=== PATIENT | female | born 1945 | race Caucasian/White ===

== ENCOUNTER → 2017-09-16 10:57 | Outpatient (CLI) | payer MEDICARE, SELFPAY ==
--- NOTE | 2017-09-16 11:30 | MRI_ITS ---
STUDY: MRA OF THE HEAD WITHOUT CONTRAST REASON FOR EXAM: Female, 72 years old. Follow-up anterior communicating artery aneurysm. TECHNIQUE: 3-D mlym-hf-[id number] (TOF) imaging was performed with MIPs. The study was performed unenhanced. COMPARISON: 11/02/2011. FINDINGS: Normal bilateral petrous carotid arteries. Normal right cavernous carotid artery with a normal supraclinoid bifurcation. Normal left cavernous carotid artery with a normal supraclinoid bifurcation. Hypoplastic right A1 segment of the anterior cerebral artery. Normal left A1 segment of the anterior cerebral artery. Normal intact anterior communicating artery (ACOM). Normal bilateral A2 segments of the anterior cerebral arteries. Normal right M1 and M2 segments of the middle cerebral arteries, with a normal M1 bifurcation. Normal left M1 and M2 segments of the middle cerebral arteries, with a normal M1 bifurcation. Normal right posterior communicating artery (PCOM). Normal left posterior communicating artery (PCOM). Normal bilateral vertebral arteries. Normal basilar artery with a normal basilar bifurcation. The visualized bilateral superior cerebellar (SCA) arteries are normal. Markedly hypoplastic right P1 segment. Normal bilateral P1, P2 and visualized P3 segments of the posterior cerebral arteries. There is no demonstrated aneurysm of the [place]. There is no major vessel occlusion or hemodynamically significant stenosis. MRI/MRA Head ONLY without Contrast IMPRESSION: 1. No MRA evidence of intracranial aneurysm particularly in the anterior communicating artery. The anterior communicating artery is normal and there is a developmentally hypoplastic right A1 segment. 2. Normal MRA of the head. 3. Much better detail in today's exam when compared to 11/02/2011. Electronically Signed: Butch Hutton MD at 13:20 EDT , Service support ,
== END ==
PROVIDERS: Family Provider Family Medicine; PCP Family Medicine; Visit Provider Ophthalmology
DX: I67.1 Cerebral aneurysm, nonruptured (principal)
CPT/HCPCS: 70544

== ENCOUNTER → 2018-04-11 08:42 | Outpatient (CLI) | payer MEDICARE, SELFPAY ==
--- NOTE | 2018-04-11 08:45 | RAD_ITS ---
PROCEDURE: Fluoroscopic guided left shoulder Injection DATE: April 11, 2018. INDICATION: Female, 73 years old. Chronic left shoulder pain. PHYSICIAN: Boy Aldana M.D. MEDICATIONS: 12 mg of betamethasone and 4 cc of 1% lidocaine. 2% lidocaine administered subcutaneously for local anesthesia. ACCESS SITE: Left shoulder. NEEDLE: 22-gauge spinal needle. FLUOROSCOPY TIME (if supplied): (0:31) minutes/seconds. A single image was obtained. FINDINGS: The risks, benefits, and alternatives to the procedure were explained to the patient. The specific risks of bleeding, infection, and neurovascular injury were detailed and accepted. Witnessed informed consent was obtained. A 22-gauge spinal needle was positioned under radiographic fluoroscopic localization. Approximately 2 cc of Isovue-300 instilled for localization purposes. Medication was then injected. The patient tolerated the procedure well without any immediate complications. The patient was placed supine with head elevated and returned to the floor in stable condition. RAD/Inj/Asp Broderick Jt Should/Hip/Knee IMPRESSION: 1. Successful fluoroscopic guided left shoulder injection. Electronically Signed: Boy Aldana, at 10:00 EST , Service support ,
== END ==
PROVIDERS: Family Provider Family Medicine; PCP Family Medicine; Referring Provider Specialist; Visit Provider Specialist
DX: M19.012 Primary osteoarthritis, left shoulder (principal); G89.29 Other chronic pain
CPT/HCPCS: 20610; 77002; Q9967; J0702

== ENCOUNTER → 2020-03-11 11:12 | Outpatient (CLI) | payer MEDICARE, SELFPAY ==
--- NOTE | 2020-03-11 08:15 | BLA_PTH ---
PATIENT: JUAN HURLEY LOC: [facility] U#:[id number] AGE/SX: 79/F ROOM: RE03/11/[address]: Dr. Cliff Jose MD : 1945 BED: DIS: SPEC #: [id number] RECD: 03/11/20 10:59 STATUS: CINDY KATHLEEN #: [id number] BHAVNA: 03/11/20 08:[address]: Cliff Jose DEPT: SURGICAL PATHOLOGY RECD BY: Marcia Kumar ENTERED: 03/11/20 13:11 SP TYPE: BLADDER BX OTHR DR: Dr. Jorge Vargas, DO Tissues: Urinary bladder, NOS Procedures: Surgery Specimen Level IV HEADER OPERATION: Bladder biopsy PRE-OP DIAGNOSIS: Neoplasm of bladder; hematuria TISSUE SUBMITTED: Bladder biopsy MICROSCOPIC DIAGNOSIS Urinary bladder, biopsy: Superficial fragment of urothelium with mild reactive change. See comment. AM:jaxson 03/12/2020 COMMENT Clinical correlation is suggested. MICROSCOPIC DESCRIPTION Slides are reviewed. GROSS DESCRIPTION Received in fixative is one container labeled with the patient's name and designated bladder biopsy. The specimen consists of two minute fragments of erazo soft tissue each measuring 0.1 cm in greatest dimension. The specimen is totally submitted in one cassette. / SJ:jaxson 03/11/20 TC:5 CPT: 75522
== END ==
PROVIDERS: PCP Family Medicine; Referring Provider Urology; Visit Provider Urology
DX: R31.21 Asymptomatic microscopic hematuria (principal); D41.4 Neoplasm of uncertain behavior of bladder
CPT/HCPCS: 88305

== ENCOUNTER 2023-03-07 09:32 | Day surgery (SDC) | payer MEDICARE, SELFPAY ==
[2023-03-07] MEDS: Lactated Ringers 1,000 ML 15 ML IV (10:06)
[2023-03-07 10:07] VITALS: BP 160/72; PULSE 52; RESP 17; TEMP 36.2; O2SAT 100; BMI 29.9
--- NOTE | 2023-03-07 10:28 | PCM.HP.BLA ---
History and Physical Date of Admission: 03/07/23 77 F who presents to the office today for PCP OV 06.15.22 for preoperative clearance for left reverse total should arthroplasty noting history of CKD stage III, prediabetes, myasthenia gravis, hyperlipidemia, prolonger QT interval with bradycardia ? Biochemical CBC, BMP, LFT, A1c, TSH, uric acid, lipids, triglycerides without pertinent abnormality. ? Esophagram 07.08.22 narrowing of esophagus at inferior clavicles with barium table delay; small intermittent hiatal hernia; mild tertiary contractions. No GERD. *BGI established 01.27.23 following a stress test which she narrowly passed, she was given a glass of water and had an occurrence of dysphagia; PCP the ordered studies. Typically dysphagia is not an issue though requires repeated swallowing is necessary intermittently, less than daily with tougher foods. ROS Const Constitutional: No anorexia, fatigue, fever(s), weight change or sleep problems Eyes Eyes: No change in vision ENT ENT: No abnormal hearing, difficulty swallowing, mouth lesions, tongue swelling or throat swelling Resp Respiratory: No cough or shortness of breath Cardio Cardiology: No chest pain at rest, chest pain with exertion, shortness of breath or dyspnea on exertion Gastro GI: No difficulty swallowing Genitourinary-Female: No difficulty urinating or burning urination Musc Musculoskeletal: No joint pain, joint swelling, muscle weakness or decreased muscle mass Skin Skin: No hair loss in leg, yellowing of the eye, itchy eyes, rash, skin ulcer or skin swelling Neuro Neurology: No abnormal hearing, abnormal movements, confusion, unsteady gait/balance or memory loss Psych Psychiatric: No anxiety, No confusion and No memory loss Endo Endocrine: No fatigue or weight change Aller/Imm Allergy/Immunologic: No itchy eyes, throat swelling or tongue swelling Victoriano/Lymp Hematologic/Lymphatic: No easy bleeding, easy bruising or enlarged lymph nodes Exam Const General: cooperative and comfortable Nutritional Appearance: average body habitus and well nourished [facility] Head: normal to inspection Ears: hearing grossly normal bilaterally Nose: external nose normal Face and sinus: normal facial exam Mouth: oral mucosae normal Throat: posterior oropharynx normal Eyes General: appearance normal, both eyes and all related structures Neck Neck: normal visual inspection Chest Chest palpation & inspection: normal inspection of the chest and normal palpation of entire chest wall Resp Effort & Inspection: normal respiratory effort Auscultation: Bilateral: Clear to Auscultation Cardio Palpation: normal PMI Rate: regular rate Rhythm: regular rhythm GI Inspection: normal to inspection Auscultation: normal bowel sounds Percussion: normal to percussion Palpation: no hepatosplenomegaly Skin General: no rashes or lesions noted Neuro General: patient alert Extrem General: normal to inspection Psych Affect: normal affect Assessment and Plan Assessment and Plan (1) Dysphagia: Status: Chronic Qualifiers: Dysphagia type: esophageal phase Qualified Code(s): R13.19 - Other dysphagia Plan: 77-year-old with no significant past medical history not on any medicines on a daily basis was discovered to have esophageal dysphagia after undergoing a stress test. Her stress test was negative for any cardiac ischemia. She did undergo a barium swallow after her episode of esophageal dysphagia. Barium swallow was discovered to have narrowing at the level of the cricopharyngeus, increased tertiary contractions, narrowing at the lower esophageal sphincter and a hiatal hernia. She does get intermittent solid food dysphagia mostly with meats. Differential diagnosis does include peptic stricture, benign esophageal stricture, eosinophilic esophagitis, achalasia, inappropriate esophageal motility disorder, esophageal spasm. Recommendation upper endoscopy to evaluate upper GI tract. She was explained alternatives, risk, benefits include not withstanding bleeding, infection, sepsis, perforation, need for return to . She will have an ASA of 3. Orders: I have examined the patient and the H&P has been reviewed. There are no clinical changes since date of exam.
--- NOTE | 2023-03-07 11:00 | EGD_PTH ---
PATHOLOGY RESULTS PATIENT: JUAN HURLEY LOC: EN U#:[id number] AGE/SX: 77/F ROOM: RE03/07/[address]: Dr. Jacob Clark DO : 1945 BED: DIS: 03/07/2023 SPEC #: [id number] RECD: 03/07/23 12:10 STATUS: CINDY REClement #: [id number] BHAVNA: 03/07/23 11:[address]: Jacob Clark DEPT: SURGICAL PATHOLOGY RECD BY: Bita Perez ENTERED: 03/07/23 12:11 SP TYPE: EGD BIOPSY SEPIDEH DR: Dr. Israel Turner DO Tissues: Esophageal mucous membrane Procedures: Special Stain Group II Surgery Specimen Level IV Alcian Blue/PAS (control) HEADER OPERATION: EGD with dilation, biopsy PRE-OP DIAGNOSIS: Dysphagia TISSUE SUBMITTED: Distal esophagus biopsy MICROSCOPIC DIAGNOSIS Distal esophagus, biopsy: Gastroesophageal junction with chronic inflammation. Focal changes of reflux. No evidence of goblet cell metaplasia. See comment. AM:jaxson 03/08/2023 COMMENT Alcian blue/PAS stain with matched control supports the above diagnosis. MICROSCOPIC DESCRIPTION Slides are reviewed. GROSS DESCRIPTION Received in fixative is one container labeled with the patient's name and designated distal esophagus biopsy. The specimen consists of multiple irregular fragments of light erazo soft tissue that in aggregate measure 1.0 x 0.5 x 0.1 cm. The specimen is totally submitted in one cassette. / SJ:jaxson 03/07/2023 TC:3 CPT: 67549, 87914
[2023-03-07 11:10] VITALS: BP 160/72; BP 173/69; PULSE 60; RESP 16; TEMP 36.3; O2SAT 95
[2023-03-07 11:15] VITALS: BP 141/73; BP 160/72; PULSE 64; RESP 16; O2SAT 96
--- NOTE | 2023-03-07 11:16 | OP.CCLET_ITS ---
03/07/2023 Israel Turner Do Re : Upper GI endoscopy procedure for Haley Pagan Dear Yue This procedure was performed on Tuesday, March 07, 2023. My impressions and recommendations are as follows: Impressions : - Abnormal esophageal motility. - Moderate Schatzki ring. Dilated. - Z-line irregular, 39 cm from the incisors. Biopsied. - Small hiatal hernia. - Bilious gastric fluid. Fluid aspiration performed. - No gross lesions in the first portion of the duodenum. Recommendations : - Discharge patient to home. - Resume previous diet. - Continue present medications to look for extrinsic compression of the esophagus - Await pathology results. My findings are described in the full procedure note, which is enclosed. If I can be of further assistance, please feel free to contact me at . Sincerely, Jacob Clark, 03/07/2023 11:16:35 AM This report has been signed electronically.
--- NOTE | 2023-03-07 11:16 | OP.EGD_ITS ---
Patient Name: Haley Pagan Procedure Date: 03/07/2023 10:50 AM Date of : 1945 Age: 77 Procedure: Upper GI endoscopy Indications: Dysphagia Providers: Jacob Clark DO Medicines: Monitored Anesthesia Care Patient Profile: This is a 77 year old female. Refer to note in patient chart for documentation of history and physical. Patient has symptoms of dysphagia with both liquids and solids. Complications: No immediate complications. Procedure: Pre-Anesthesia Assessment: - Prior to the procedure, a History and Physical was performed, and patient medications and allergies were reviewed. The patient is competent. The risks and benefits of the procedure and the sedation options and risks were discussed with the patient. All questions were answered and informed consent was obtained. Patient identification and proposed procedure were verified by the physician in the pre-procedure area. Mental Status Examination: alert and oriented. Airway Examination: normal oropharyngeal airway and neck mobility. Respiratory Examination: clear to auscultation. CV Examination: normal. Prophylactic Antibiotics: The patient does not require prophylactic antibiotics. Prior Anticoagulants: The patient has taken no anticoagulant or antiplatelet agents. ASA Grade Assessment: II - A patient with mild systemic disease. After reviewing the risks and benefits, the patient was deemed in satisfactory condition to undergo the procedure. The anesthesia plan was to use monitored anesthesia care (MAC). Immediately prior to administration of medications, the patient was re-assessed for adequacy to receive sedatives. The heart rate, respiratory rate, oxygen saturations, blood pressure, adequacy of pulmonary ventilation, and response to care were monitored throughout the procedure. The physical status of the patient was re-assessed after the procedure. After obtaining informed consent, the endoscope was passed under direct vision. Throughout the procedure, the patient's blood pressure, pulse, and oxygen saturations were monitored continuously. The Endoscope was introduced through the mouth, and advanced to the second part of duodenum. The upper GI endoscopy was accomplished without difficulty. The patient tolerated the procedure well. Scope In: 11:00:19 AM Scope Out: 11:05:20 AM Total Procedure Duration Time 0 hours 5 minutes 1 second Findings: Abnormal motility was noted in the esophagus. The cricopharyngeus was abnormal. There is a decrease in motility of the esophageal body. The distal esophagus/lower esophageal sphincter is spastic, but gives up passage to the endoscope. Tertiary peristaltic waves are noted. A moderate Schatzki ring was found in the distal esophagus. A guidewire was placed and the scope was withdrawn. Dilation was performed with a Savary dilator with no resistance at 60 Fr. The dilation site was examined and showed moderate improvement in luminal narrowing. Estimated blood loss was minimal. The Z-line was irregular and was found 39 cm from the incisors. Biopsies were taken with a cold forceps for histology. Verification of patient identification for the specimen was done. A small hiatal hernia was present. Bilious fluid was found in the gastric body. Fluid aspiration was performed. No gross lesions were noted in the first portion of the duodenum. Impression: - Abnormal esophageal motility. - Moderate Schatzki ring. Dilated. - Z-line irregular, 39 cm from the incisors. Biopsied. - Small hiatal hernia. - Bilious gastric fluid. Fluid aspiration performed. - No gross lesions in the first portion of the duodenum. Recommendation: - Discharge patient to home. - Resume previous diet. - Continue present medications to look for extrinsic compression of the esophagus - Await pathology results. Procedure Code(s): --- Professional --- 64355, Esophagogastroduodenoscopy, flexible, transoral; with insertion of guide wire followed by passage of dilator(s) through esophagus over guide wire 18280, 59,51, Esophagogastroduodenoscopy, flexible, transoral; with biopsy, single or multiple CPT copyright 2021 [employer]. All rights reserved. The codes documented in this report are preliminary and upon water filterer helper review may be revised to meet current compliance requirements. Jacob Clark DO 03/07/2023 11:16:35 AM This report has been signed electronically. Number of Addenda: 0 Note Initiated On: 03/07/2023 10:50 AM
[2023-03-07 11:20] VITALS: BP 139/85; BP 160/72; PULSE 55; RESP 16; TEMP 36.1; O2SAT 100
[2023-03-07 11:29] VITALS: BP 160/72
== END 2023-03-07 11:46 | disposition home or self-care (01) ==
LOC: EN 09:33 → AC 10:04
PROVIDERS: PCP Student in an Organized Health Care Education/Training Program; Referring Provider Student in an Organized Health Care Education/Training Program; Visit Provider Internal Medicine Gastroenterology
PROC: 0DJ08ZZ Inspection of Upper Intestinal Tract, Via Natural or Artificial Opening Endoscopic (ICD-10-PCS; CPT 43235; principal; 2023-03-07 10:55)
DX: K22.2 Esophageal obstruction (principal); K44.9 Diaphragmatic hernia without obstruction or gangrene; E78.5 Hyperlipidemia, unspecified; Z79.899 Other long term (current) drug therapy
CPT/HCPCS: 43248; 43239; 88305; 88313; C1769; J2405

== ENCOUNTER → 2023-03-15 | Outpatient (CLI) | payer MEDICARE, SELFPAY ==
--- OUTSIDE RECORDS SUMMARY | 2023-03-15 07:41 | XMS RPT_ITS | CCD ---
Author Name Unknown Address [address] [place] [address] Organization [facility] Care Team Providers Care Supervisor Contact Lens Name Role Phone LOCO NORMAN, DR BELLAMY Primary Care Physician [phone] Narinder MICHELE, Sarita Unavailable Unavailable ROMAR DO, DR BELLAMY Primary Care Unavailable ROMAR DO, DR BELLAMY Attending Unavailable ROMAR DO, DR BELLAMY Attending Unavailable ROMAR DO, DR BELLAMY Primary Care Unavailable ROMAR DO, DR BELLAMY Attending Unavailable ROMAR DO, DR BELLAMY Primary Care Unavailable ROMAR DO, DR BELLAMY Primary Care Unavailable ESHENAUR PA-CTOBI Attending Unavailable ESHENAUR PA-C, RAY W Referring Unavailable ROMAR DO, DR BELLAMY Attending Unavailable ROMAR DO, DR BELLAMY Primary Care Unavailable ROMAR DO, DR BELLAMY Attending Unavailable ROMAR DO, DR BELLAMY Primary Care Unavailable ROMAR DO, DR BELLAMY Attending Unavailable ROMAR DO, DR BELLAMY Primary Care Unavailable ROMAR DO, DR BELLAMY Primary Care Unavailable JOSEPH PALOMINO-KEM, NILA Emery Consulting Cezar DUARTE, NILA Emery Attending Cezar HENDRICKS MD, DR MARISEL Garcia Admitting Unavailab riri HENDRICKS MD, DR MARISEL Garcia Referring Unavailab le ROMAR , DR BELLAMY Primary Care Unavailable ELADIO POON, DR MARISEL Garcia Attending Unavailab le ROMAR , DR BELLAMY Primary Care Unavailable ELADIO POON, DR MARISEL Garcia Attending Unavailab le ROMAR DO, DR BELLAMY Primary Care Unavailable ROMAR DO, DR BELLAMY Attending Unavailable ROMAR DO, DR BELLAMY Primary Care Unavailable ROMAR DO, DR BELLAMY Attending Unavailable ROMAR DO, DR BELLAMY Attending Unavailable ROMAR DO, DR BELLAMY Primary Care Unavailable Allergies Allergy Classification Reported Allergen(s) Allergy Type Date of Onset Reaction(s) Facility (10 sources) Acetaminophen / HYDROcodone; Translations: [acetaminophen-hyd rocodone] Drug Allergy Vomiting [facility] Medications Current Medications Medication Drug Class(es) Dates Sig (Normalized) Sig (Original) acetaminophen 500 mg oral tablet (1 source) Start: 07-14-2022 End: 07-28-2022 take 1 tablet by mouth once daily acetaminophen 500 mg oral tablet Dose : 1,000 mg = 2 tab(s), Oral, TID, PRN as needed for pain, not to exceed 3000 mg/day, # 100 tab(s), 0 Refill(s), 07/28/22 7:36:00 EDT, Pharmacy: [facility] #[id number], 160, cm, 07/13/22 12:23:00 EDT, Height Start Date: 07/14/22 Stop Date: 07/28/22 Status: Ordered albuterol MDI (90 mcg/inh) CFC free inhalation aerosol (8 sources) Start: 06-29-2022 End: 12-26-2022 take 2 puff(s) by inhalation every four hours as needed for wheezing albuterol MDI (90 mcg/inh) CFC free inhalation aerosol 2 puff(s), Inhalation, q4h, PRN Shortness of breath or wheezing, use with spacer chamber, # 1 EA, 5 Refill(s), Pharmacy: [facility] #[id number], 160, cm, 06/28/22 11:31:00 EDT, Height Start Date: 06/29/22 Stop Date: 12/26/22 Status: Ordered Completed/Discontinued Medications Medication Drug Class(es) Dates Sig (Normalized) Sig (Original) aspirin 81 mg delayed release oral tablet (2 sources) Platelet Aggregation Inhibitor, Nonsteroidal Anti-inflammatory Drug Start: 07-14-2022 End: 07-28-2022 take 1 tablet by mouth twice daily aspirin 81 mg oral delayed release tablet Dose : 81 mg = 1 tab(s), Oral, BID, Take 81 mg aspirin twice daily with food for 4 weeks postoperatively for DVT prophylaxis., # 28 tab(s), 0 Refill(s), Pharmacy: [facility] #[id number], 160, cm, 07/13/22 12:23:00 EDT, Height Start Date: 07/14/22 Stop Date: 07/28/22 Status: Ordered cetirizine hydrochloride 10 mg oral tablet (1 source) Histamine-1 Receptor Antagonist Start: 10-17-2019 End: 12-16-2019 cetirizine 10 mg oral tablet Dose : 10 mg = 1 tab(s), Oral, qDay, # 30 tab(s), 1 Refill(s), [id number], 160, cm, 10/17/19 13:59:00 EDT, Height, kg, 10/17/19 13:59:00 EDT, Dosing Weight Start Date: 10/17/19 Stop Date: 12/16/19 Status: Ordered triamcinolone acetonide 0.055 mg/actuat metered dose nasal spray (3 sources) Corticosteroid Start: 10-17-2019 End: 12-16-2019 take 1 dose nasal route once daily Nasacort Allergy 24HR 55 mcg/inh nasal spray Dose = 1 spray(s), Nostril, each, qDay, # 1 EA, 1 Refill(s), [id number], 160, cm, 10/17/19 13:59:00 EDT, Height, kg, 10/17/19 13:59:00 EDT, Dosing Weight Start Date: 10/17/19 Stop Date: 12/16/19 Status: Ordered Problems Problem Classification Problem Date Documented Da te Episodic/Chronic Abdominal hernia (3 sources) Hiatal hernia 07-12-2022 Episodic Abdominal pain (20 sources) Abdominal pain; Translations: [Abdominal wall pain] 06-27-2019 Episodic Cancer of bladder (1 source) Malignant tumor of urinary bladder 02-19-2020 Chronic Results Test Name Value Interpretation Reference Range Facil ity Vital Signs Date Time Vital Sign Value Performing Clinician Faci lity 07-14-2022 12:54-0400 Body temperature 97.52 [degF] DR MARISEL HENDRICKS MD [facility] 07-14-2022 12:54-0400 Diastolic Blood Pressure Non-Invasive [address] MARISEL HENDRICKS MD [facility] 07-14-2022 12:54-0400 Heart rate 56 /min DR MARISEL HENDRICKS MD [facility] 07-14-2022 12:54-0400 Reason For Taking VItal Signs DR MARISEL HENDRICKS MD [facility] 07-14-2022 12:54-0400 Respiratory rate 16 /min DR MARISEL HENDRICKS MD [facility] 07-14-2022 12:54-0400 Systolic Blood Pressure Non-Invasive [address] MARISEL HENDRICKS MD [facility] 07-14-2022 07:06-0400 Body temperature 97.88 [degF] DR MARISEL HENDRICKS MD [facility] 07-14-2022 07:06-0400 Diastolic Blood Pressure Non-Invasive [address] MARISEL HENDRICKS MD [facility] 07-14-2022 07:06-0400 Heart rate 54 /min DR MARISEL HENDRICKS MD [facility] 07-14-2022 07:06-0400 Reason For Taking VItal Signs DR MARISEL HENDRICKS MD [facility] 07-14-2022 07:06-0400 Respiratory rate 16 /min DR MARISEL HENDRICKS MD [facility] 07-14-2022 07:06-0400 Systolic Blood Pressure Non-Invasive [address] MARISEL HENDRICKS MD [facility] 07-14-2022 03:57-0400 Body temperature 97.7 [degF] DR MARISEL HENDRICKS MD [facility] 07-14-2022 03:57-0400 Diastolic Blood Pressure Non-Invasive [address] MARISEL HENDRICKS MD [facility] 07-14-2022 03:57-0400 Heart rate 45 /min DR MARISEL HENDRICKS MD [facility] 07-14-2022 03:57-0400 Reason For Taking VItal Signs DR MARISEL HENDRICKS MD [facility] 07-14-2022 03:57-0400 Respiratory rate 16 /min DR MARISEL HENRDICKS MD [facility] 07-14-2022 03:57-0400 Systolic Blood Pressure Non-Invasive [address] MARISEL HENDRICKS MD [facility] 07-13-2022 23:14-0400 Heart rate 47 /min DR MARISEL HENDRICKS MD [facility] 07-13-2022 20:25-0400 Body temperature 97.16 [degF] DR MARISEL HENDRICKS MD [facility] 07-13-2022 12:23-0400 Body height [address] MARISEL HENDRICKS MD [facility] 07-13-2022 12:23-0400 Body weight 78.[address] MARISEL HENDRICKS MD [facility] 07-13-2022 12:23-0400 Body weight 30.78 kg/m2 DR MARISEL HENDRICKS MD [facility] 07-13-2022 11:14-0400 Body temperature 96.26 [degF] DR MARISEL HENDRICKS MD [facility] 07-13-2022 11:10-0400 Respiratory Rate - Anes 6 br/min DR MARISEL HENDRICKS MD [facility] 07-13-2022 11:05-0400 Respiratory Rate - Anes 36 br/min DR MARISEL HENDRICKS MD [facility] 07-13-2022 11:00-0400 Body temperature 94.73 [degF] DR MARISEL HENDRICKS MD [facility] 07-13-2022 11:00-0400 Respiratory Rate - Anes 8 br/min DR MARISEL HENDRICKS MD [facility] 07-13-2022 10:55-0400 Body temperature 94.82 [degF] DR MARISEL HENDRICKS MD [facility] 07-13-2022 10:50-0400 Body temperature 94.55 [degF] DR MARISEL HENDRICKS MD [facility] 07-13-2022 08:16-0400 Heart rate 55 /min DR MARISEL HENDRICKS MD [facility] 07-13-2022 08:13-0400 Body height [address] MARISEL HENDRICKS MD [facility] 07-13-2022 08:13-0400 Body temperature 97.7 [degF] DR MARISEL HENDRICKS MD [facility] 07-13-2022 08:13-0400 Body weight 78.[address] MARISEL HENDRICKS MD [facility] 07-13-2022 08:13-0400 Heart rate 65 /min DR MARISEL HENDRICKS MD [facility] 06-28-2022 11:30-[address] MARISEL HENDRICKS MD [facility] 06-28-2022 11:30-[address] MARISEL Jacobs [facility] 06-28-2022 11:30-0400 Body height [address] MARISEL HENDRICKS MD [facility] 06-28-2022 11:30-0400 Body weight 77.[address] MARISEL HENDRICKS MD [facility] 06-28-2022 11:30-0400 Body weight 30.35 kg/m2 DR MARISEL HENDRICKS MD [facility] 06-28-2022 11:30-0400 Diastolic Blood Pressure Non-Invasive [address] MARISEL HENDRICKS MD [facility] 06-28-2022 11:30-0400 Heart rate 50 /min DR MARISEL HENDRICKS MD [facility] 06-28-2022 11:30-0400 Respiratory rate 18 /min DR MARISEL HENDRICKS MD [facility] 06-28-2022 11:30-0400 Systolic Blood Pressure Non-Invasive [address] MARISEL HENDRICKS MD [facility] Encounters Encounter Date Encounter Type Care Provider Facility Start: 11-18-[address] JOSESITO ADAN DO Facili ty:B Start: 11-02-2022 End: 11-07-[address] JOSESITO ADAN DO Facility:B Start: 11-02-2022 End: 11-07-2022 Encounter for general adult medical examination without abnormal findings DR JOSESITO ADAN DO Facility:B Start: 11-02-2022 End: 11-06-[address] JOSESITO ADAN DO [facility] Start: 07-27-2022 End: 09-28-[address] JOSESITO ADAN DO Facility:B Start: 07-27-2022 End: 09-28-2022 Admission to same day surgery center TOBI LONDON PA-C [facility] Start: 07-13-2022 End: 07-14-[address] JOSESITO ADAN DO Facility:B Start: 07-13-2022 End: 07-14-[address] MARISEL HENDRICKS MD [facility] Start: 07-08-2022 End: 07-09-[address] JOSESITO ADAN DO Facility:B Start: 06-28-2022 End: 06-29-[address] JOSESITO ADAN DO Facility:B Start: 06-28-[address] JOSESITO ADAN DO Facili ty:B Start: 06-28-2022 End: 06-28-[address] MARISEL HENDRICKS MD [facility] Start: 06-28-2022 End: 06-29-[address] JOSESITO ADAN DO Facility:B Start: 06-28-2022 End: 06-28-[address] JOSESITO ADAN DO [facility] Start: 06-21-2022 End: 06-22-[address] JOSESITO ADAN DO Facility:B Start: 06-21-2022 End: 06-21-[address] JOSESITO ADAN DO [facility] Start: 06-21-2022 End: 06-21-[address] JOSESITO ADAN DO [facility] Start: 06-18-2022 End: 06-19-[address] JOSESITO ADAN DO Facility:B Start: 06-18-2022 End: 06-18-[address] JOSESITO ADAN DO [facility] Start: 04-26-2022 End: 04-27-[address] JOSESITO ADAN DO Facility:B Start: 04-26-2022 End: 04-26-[address] MARISEL HENDRICKS MD [facility] Start: 03-26-2022 End: 03-27-[address] JOSESITO ADAN DO Facility:B Start: 03-04-2022 End: 03-05-[address] JOSESITO ADAN DO Facility:[facility] Start: 03-04-2022 End: 03-04-[address] JOSESITO ADAN DO [facility] Start: 08-21-2021 End: 08-21-2021 Patient encounter procedure KELLI STERLING DO [facility] Procedures Date Procedure Procedure Detail Performing Clinician Start: 07-13-2022 Pro[address] arthro[address] sty of shoulder [address] JOSESITO AADN DO Immunizations Immunization Date Immunization Notes Care Provider [facility] 11-08-2021 influenza virus vaccine, unspecified formulation DR JOSESITO ADAN DO [facility] 11-01-2021 SARS-CoV-2 CV19 mRNA tozinameran 12y+vax DR JOSESITO ADAN DO [facility] 11-01-2021 SARSCoV2 mRNA([id number]+)bi renae LONDON PA-C [facility] 06-11-2021 SARS-CoV-2 (COVID-19 ) [id number] JOSESITO ADAN DO [facility] 01-21-2021 zoster vaccine mariangel STERLING DO [facility] Payers Date Payer Category Payer Private Health Insurance 101 [id number] 1945 Unknown [id number] 2.16.8 [id number] 1945 Unknown [id number] 2.16.8 [id number] 1945 Unknown [id number] 2.16.8 [id number] 1945 Unknown [id number] 2.16.8 [id number] 1945 Unknown [id number] 2.16.8 [id number] 1945 Unknown [id number] 2.16.8 [id number] 1945 Unknown [id number] 2.16.8 [id number] 1945 Unknown [id number] 2.16.8 [id number] 1945 Unknown [id number] 2.16.8 [id number] 1945 Unknown [id number] 2.16.8 [id number] 1945 Unknown [id number] 2.16.8 [id number] 1945 Unknown [id number] 2.16.8 [id number] 1945 Unknown [id number] 2.16.8 [id number] Social History Date Type Detail Facility Start: 08-21-2018 Tobacco smoking status Never s moked tobacco (finding) [facility] Sex Assigned At Female [facility] Functional Status Date Assessment Result Facility 07-14-2022 Functional Status Door open, Room check performed [facility] 07-14-2022 Functional Status None [facility] 07-14-2022 Functional Status 5 [facility] 07-14-2022 Functional Status [facility] 07-13-2022 Functional Status [facility] 07-13-2022 Functional Status Dinner Percent 50 [facility] 07-13-2022 Functional Status Supervised [facility] 07-13-2022 Functional Status Multilevel home [facility] 07-13-2022 Functional Status Sensory Deficits None [facility] 07-13-2022 Functional Status ice on [facility] 07-13-2022 Functional Status Maintained [facility] Mental Status Date Assessment Result Facility 07-14-2022 Mental Status Oriented x 4 [facility] 07-14-2022 Mental Status [facility] 07-13-2022 Mental Status [facility] 07-13-2022 Mental Status [facility] Clinical Notes 04-26-2022 to 07-14-2022 LaboratoryRadiologyRadiologyRadiologyRadiology Note Date & Type Note Facility 07-14-2022 Note Discharge Instructions Thank you for allowing [facility] to assist you with your healthcare needs. The following is important discharge information regarding your hospital visit. Your Care Team Dr. Hendricks Your Diagnosis Osteoarthritis Status post total shoulder arthroplasty HTN (hypertension) CKD (chronic kidney disease) Status post reverse total replacement of left shoulder What to do next Scheduled Follow-Up Appointments Appointment Type When With Where Contact InformationPT Outpatient Evaluation 07/27/2022 01:00 PM EDT [facility] [phone] [facility] Medicare 11/02/2022 01:30 PM EDT JOS[facility]ITO ADAN [facility] [address] [place] [phone] Follow Up Appointments Follow Up with [facility] When 07/27/2022 01:00 PM EDT Why: This is your first physical therapy appointment. Follow-up as scheduled. Where: [address] [place] [address]- [phone] Follow Up with TOBI LONDON PA-C, Orthopedic When 07/26/2022 03:30 PM EDT Why: This is your post-op appointment. Follow-up as scheduled. Where: [facility] [address] [place] [id number]- The Following Activity and Diet Have Been Ordered for You No changes were made to your diet. Activity: No weight bearing to operative extremity. The Following Treatments Have Been Ordered for You Discharge Labs No qualifying data available. Discharge Radiology No qualifying data available. Other Therapies No qualifying data available. Post Acute Orders No qualifying data available. Allergies Vicodin (Vomiting) Medications Please ask your primary doctor or pharmacist before taking any other medication not listed, including over the counter drugs, herbal medications, vitamins and or supplements as they may interact with your home medications. What How Much When Why Instructions Last Dose New acetaminophen (acetaminophen 500 mg oral tablet) 2 tab(s) by mouth Three (3) times a day as needed for as needed for pain not to exceed 3000 mg/ day Pickup at [facility] #[id number] 07/14/22 at 0957am New aspirin (aspirin 81 mg oral delayed release tablet) 1 tab(s) by mouth Two (2) times a day Duration: 14 Days Take 81 mg aspirin twice daily with food for 4 weeks postoperatively for DVT prophylaxis. Pickup at [facility] #[id number] 07/14/22 at 0811am New docusate-senna (Senokot S 50 mg-8.6 mg oral tablet) 2 tab(s) by mouth Two (2) times a day Duration: 3 Days Take until first bowel movement, then as needed Pickup at [facility] #[id number] none today New famotidine (Pepcid 20 mg oral tablet) 1 tab(s) by mouth Once a day Pickup at [facility] #[id number] 07/14/22 at 0811am New oxyCODONE (oxyCODONE 5 mg oral tablet ( IMMEDIATE release )) See instructions Status post reverse total replacement of left shoulder 1-2 tab(s) Oral q4h Pickup at [facility] #[id number] 07/14/22 at 0811am Unchanged albuterol (albuterol MDI (90 mcg/ inh) CFC free inhalation aerosol) 2 puff(s) by inhalation Every 4 hours as needed for Shortness of breath or wheezing Duration: 30 Days use with spacer chamber none today Unchanged atorvastatin (atorvastatin 20 mg oral tablet) 1 tab(s) by mouth Daily at bedtime none today Unchanged cholecalciferol (Vitamin D3) 100 Microgram by mouth Every day none today Unchanged losartan (losartan 100 mg oral tablet) 1 tab(s) by mouth Once a day 07/14/22 at 0811am Pharmacy Information [facility] #[id number]: [address], [place] [id number] [phone] Please take this list to your next doctor s visit. Bring all medications you take, including over the counter medications, herbals and other supplements with you to your doctor s visit. Patients and families are reminded to discard old lists and to update any records with all medication providers or retail pharmacies. Education Materials [facility] Post-operative Instructions PLEASE FOLLOW [facility] POST-OP INSTRUCTIONS GIVEN WATCH FOR SIGNS OF INFECTION: call the office ([phone]) if experencing any of the following: (Usually appears 36-48 hours after surgery) Increased temperature (101 degrees Fahrenheit or higher) Redness or swelling Increased uncontrolled pain Foul odor or drainage Calf discomfort Significant swelling Or if having any chest pain, shortness of breath, or difficulty breathing or swallowing call the office or go the nearest Emergency Room. If you have any questions, please call your doctor at the number listed on your follow up instructions. Form: 338A ([id number]) R: 06/20 Additional Information VACCINATE! IT SAVES LIVES! Members of the community who have not yet received the COVID-19 vaccine and would like to receive it can visit one of [facility] vaccine clinics. There are many vaccine clinic locations within the [facility]. For locations and available times, please visit https://gettheshot.coronavirus.o hio.gov/. It is important to note that some COVID mobile vaccine clinics are held outdoors and may be canceled in rainy or stormy conditions. To learn more about pediatric vaccinations (ages 5-11), we invite you to visit the [facility] webpage. https://www.[employer]s.org/p ages/1901-Uhubb-Zeggulhuues-Freq cgsgyc-Mwphv-Vqfphvxfo.html To learn more about the COVID-19 vaccine, we invite you to visit the CDC website for a list of frequently asked questions.https://www.cdc.gov/co ronavirus/2019-ncov/vaccines/faq .html [facility] Patient Portal Access Instructions: Stay connected with your healthcare team and access your personal medical information anytime with the [facility] Patient Portal. Please follow the directions below to create your [facility] account: 1.Access the email account you provided upon registration to the hospital/physician office.2.Look for an invitation email from [facility].3.Open the email and access the invitation link: Accept Invitation to [facility].4.Fill in the required baxter to create your account. To access your account, visit [facility] [facility] [facility]. Click the blue button labeled Access Patient Portal and then log in with the username and password that you created in the steps above. You will be able to view your test results, lab results, a summary of your visits, upcoming appointments and more. There is also a convenient messaging option where you can send secure messages to your provider. In addition, you will have the ability to download any documents or summaries to your computer and/or send the information securely to a physician. Remember that your healthcare information is confidential, so carefully consider who you will allow to register on the [facility] Patient Portal for access to your information. You can also access the [facility] Patient Portal on the [facility] chirag. Simply click on Patient Portal and then log into your account. If you would like to receive a full copy of your medical records, please contact the [facility] Medical Records Department by calling [phone], Tuesday through Tuesday between 8 a.m. and 4:30 p.m. HOW TO SAFELY DISPOSE OF PRESCRIPTION MEDICATIONS Please use one of the following methods to safely dispose of your unused medications. 1.Use a drug disposal kit: the drug disposal pouch allows you to safely discard your old and unused drugs. Ask your nurse to give you one when you are discharged.2.Visit a local take-back location: Many local pharmacies and police departments have programs that collect old and unwanted prescription drugs. Call your local pharmacy or go to http://Springbuk.Escapio/2W2Jv3g to find one close to you.3.Make use of household items: Use cat litter or old coffee grounds to dispose medications if other options are not available. Mix your drugs with these household products, seal them in an airtight container and throw it into the garbage. Call [facility]: [phone] to be sure your drugs can be disposed of in this way. Some medicines may require a different approach.4.Never flush your medications down the toilet. IF YOU HAVE BEEN PRESCRIBED AN OPIOID FOR PAIN If you have been prescribed an opioid (such as hydrocodone, oxycodone or morphine), it is critical to understand the possible side effects and risks of opioid pain medications. Even when taken as directed, opioids can have several side effects including: Tolerance, meaning you might need to take more of a medication for the same pain relief. Nausea, vomiting and/or constipation. Sleepiness, dizziness, dry mouth, confusion, depression or itching. Physical dependence, meaning you have withdrawal symptoms when a medication is stopped, can develop within a few days. KNOW YOUR RESPONSIBILITIES It is important to know exactly how much and how often to take the opioid pain medications you are prescribed. Never take opioids in higher amounts or more often than prescribed. Do not combine opioids with alcohol or other drugs that cause drowsiness, such as benzodiazepines, also known as benzos, including diazepam and alprazolam, muscle relaxants or sleep aids. Never sell or share prescription opioids. This is illegal. Store opioids in a secure place and out of reach of others (including children, family, friends and visitors). The last page of this document has been signed and retained as a CHART COPY. Signatures Patient Education Materials 5 - [facility] Post-op Instruction 09/2016 ([id number]) Medication Leaflets My discharge plan and instructions have been reviewed and explained to me and I,JUAN HURLEY understand my current condition and have read and understand these discharge instructions. I have received a written copy of the plan/instructions. If I have questions, I am aware that I should contact my doctor. Patient/Neuroscience Director Na Signature: Date/Time: Relationship to Patient: Witness Name/Signature: Date/Time: [facility] 07-14-2022 Hospital Discharg e instructions Patient Education 07/14/2022 07:34:18 5 - [facility] Post-op Instruction 09/2016 ([id number]) [facility] Post-operative Instructions PLEASE FOLLOW [facility] POST-OP INSTRUCTIONS GIVEN WATCH FOR SIGNS OF INFECTION: call the office ([phone]) if experencing any of the following: (Usually appears 36-48 hours after surgery) Increased temperature (101 degrees Fahrenheit or higher) Redness or swelling Increased uncontrolled pain Foul odor or drainage Calf discomfort Significant swelling Or if having any chest pain, shortness of breath, or difficulty breathing or swallowing call the office or go the nearest Emergency Room. If you have any questions, please call your doctor at the number listed on your follow up instructions. Form: [id number]) R: 06/20 Follow Up Care 04/19/2022 14:56:22 With:TOBI LONDON PA-C, Orthopedic Address: [facility] [address] [place] [address]- When:07/26/2022 15:30:00 Comments:This is your post-op appointment. Follow-up as scheduled. With:[facility] Address: [address] [place] [phone] When:07/27/2022 13:00:00 Comments:This is your first physical therapy appointment. Follow-up as scheduled. [facility] 07-14-2022 Note Date of Service July 14, 2022 Subjective The patient was sitting in bed upon examination. Patient denies any chest pain, shortness of breath, dizziness, lightheadedness, nausea or vomiting, or calf pain. No adverse overnight events. Pain has been controlled on medications. Patient states the block is wearing off. She still has some slight numbness in her left thumb and index finger. Her pain has been very well controlled. She has no complaints this morning. Objective Vitals and Measurements T: 36.6 C (Oral) TMIN: 34.75 C TMAX: 36.6 C (Oral) HR: 54 RR: 16 BP: 149/63 SpO2: 94% HT: 160 cm WT: 78.8 kg BMI: 30.78 Intake and Output 7AM Yesterday to 7AM Today Intake and Output (Last 24 hours) Intake Oral Intake 500.00 Administration Information 2200.00 Output Intra-Op EBL 75.00 Urine Count 2.00 Diaper Count 1.00 Total Summary Total Intake 2700.00 Total Output 75.00 Fluid Balance 2625.00 Physical Exam Vital signs stable, afebrile SCDs and GOLDIE hose are in place bilaterally Dressing is clean dry and intact UltraSling fitting appropriately Sensation is intact to axillary, radial, median, and ulnar distribution Motor intact with patient able to make okay sign, cross fingers, and thumbs up Weight Dosing Weight: 78.8 kg (07/13/22) Dosing Weight: 78.8 kg (07/13/22) Medications Medications (20) Active Scheduled: (12) acetaminophen 500 mg Tablet 1,000 mg 2 tab(s), Oral, q6hr aspirin 81 mg EC 81 mg 1 tab(s), Oral, BID atorvastatin 10 mg tablet 20 mg 2 tab(s), Oral, qHS bisacodyl 5 mg EC tablet 10 mg 2 tab(s), Oral, Once docusate sodium 100 mg Capsule 100 mg 1 cap(s), Oral, BID docusate-senna (Senokot S) 50 mg-8.6 mg Tablet 2 tab(s), Oral, BID famotidine 20 mg tablet 20 mg 1 tab(s), Oral, qDay Lactated Ringers Injection 1000 mL * Bolus * 1,000 mL, IV Bolus, PREOP pharm Lactated Ringers Injection 1000 mL * Bolus * 1,000 mL, IV Bolus, Once losartan 50 mg tablet 100 mg 2 tab(s), Oral, qDay magnesium hydroxide 8% Suspension 30 mL UD 30 mL, Oral, Daily ondansetron 2 mg/ 1 mL 2 mL INJ 4 mg 2 mL, IV Push, q8h Continuous: (0) PRN: (8) acetaminophen 325 mg Tablet 650 mg 2 tab(s), Oral, q4h diphenhydramine 25 mg tablet 25 mg 1 tab(s), Oral, q6h diphenhyDRAMINE 50 mg/mL (1 mL) INJ 25 mg 0.5 mL, IV Push, q6h ondansetron 2 mg/ 1 mL 2 mL INJ 4 mg 2 mL, IV Push, q8h oxycodone 5 mg tablet (immediate release) 5 mg 1 tab(s), Oral, q4h oxycodone 5 mg tablet (immediate release) 10 mg 2 tab(s), Oral, q4h prochlorperazine 10 mg/2 mL vial 5 mg 1 mL, IV Push, q6h sodium biphosphate-sodium phosphate 19 gm-7 gm Enema 133 mL, Rectal, qDay Lab Results 07/14 05:12 WBC: 13.9 H Hgb: 11.8 L Hct: 35.5 L Platelet: 213 Neutrophil %: 82.8 H Glucose Level: 136 H Sodium Level: 140 Potassium Level: 4.3 BUN: 19 H Creatinine Lvl (s): 1.29 H EKG No qualifying data available. Assessment/Plan 1. Osteoarthritis 2. Status post total shoulder arthroplasty 1. Status post left reverse total shoulder arthroplasty postop day #1 2. Continue pain medications: Tylenol and oxycodone 3. DVT prophylaxis: Take 81 mg aspirin twice daily with food for 2 weeks postoperatively for DVT prophylaxis. Patient denies past history of DVT or pulmonary embolism 4. Physical therapy: Continue with UltraSling at all times. Okay to take off sling for elbow range of motion and pendulum exercises 2-3 times daily. No range of motion of the operative shoulder. Will begin outpatient physical therapy after the 2-week follow-up at [facility]. 5. H & H: 11.8/35.5, asymptomatic. Postoperative anemia secondary to acute blood loss from surgery without intraoperative complications. 6. Reactive leukocytosis: Currently 13.9, afebrile. Patient did receive Decadron intraoperatively 7. Encouraged incentive spirometry 8. Continue postoperative medical management per medicine 9. Disposition: Overall patient is doing very well this morning. Plan will be for discharge home today if medically stable, pain is well controlled, and tolerates therapy. We discussed postoperative course of treatment. She has outpatient physical therapy established after her 2-week postoperative follow-up with our office. Patient will follow-up per postoperative instructions. She would like her medications E scribed to [facility] in [facility]. Upon discharge she will contact her office with any concerns or questions. I have reviewed the [place] Automated Rx Reporting System (OARRS) report for this patient for refill pattern and other prescriber involvement as part of the appropriate surveillance for the provision of acute and chronic controlled medications. The report was requested and reviewed on the date of this entry, and was considered in the prescribing process This dictation was created using voice recognition software. Phonetic and/or grammatical errors may exist. 3. HTN (hypertension) Digitally Signed by TOBI LONDON PA-C on 07/14/2022 07:13 AM [facility] 07-13-2022 Note ORIGINAL HISTORY: Postop COMPARISON: CT 03 February 2018 FINDINGS: There is an arthroplasty in near anatomic alignment. There is no radiographic evidence of loosening or failure of hardware. There is gas in the overlying soft tissues. IMPRESSION: Arthroplasty with immediate postoperative changes. Interpreted by: Mario Magana MD Preliminary Report By: Mario Magana MD Electronically signed By Mario Magana MD Dictated Date: 07/13/2022 12:19:54 PM Prelim Date: 07/13/2022 12:20:36 PM Sign Date: 07/13/2022 12:20:36 PM Ordering Provider: MARISEL HENDRICKS [facility] 07-13-2022 Note ORIGINAL HISTORY: Postop COMPARISON: CT 03 February 2018 FINDINGS: There is an arthroplasty in near anatomic alignment. There is no radiographic evidence of loosening or failure of hardware. There is gas in the overlying soft tissues. IMPRESSION: Arthroplasty with immediate postoperative changes. Interpreted by: Mario Magana MD Preliminary Report By: Mario Magana MD Electronically signed By Mraio Magana MD Dictated Date: 07/13/2022 12:19:54 PM Prelim Date: 07/13/2022 12:20:36 PM Sign Date: 07/13/2022 12:20:36 PM Ordering Provider: MARISEL HENDRICKS [facility] 07-13-2022 Anesthesiology Consult note Patient: JUAN HURLEY Age: 77 years Sex: Female : 1945 Associated Diagnoses: None Author: DEEPTHI GRUBBS Assessment Postanesthesia assessment Vitals: Reviewed Results: Vital signs from flowsheet : Vital Signs(Date Range: 07/12/2022 0:00 EDT - 07/13/2022 11:19 EDT) . Mental status: at preoperative baseline, alert & oriented x 4. Respiratory function: lungs are clear to auscultation. Respiratory support: none. CV function: Normal rate. Cardiovascular support: none. Pain. Nausea status: denies nausea. Postoperative hydration status: within normal limits. Digitally Signed by DEEPTHI GRUBBS on 07/13/2022 11:19 AM [facility] 07-13-2022 Anesthesiology Consult note Patient: JUAN HURLEY Age: 77 years Sex: Female : 1945 Associated Diagnoses: None Author: DEEPTHI GRUBBS Preoperative Information Time of last food or liquid consumption: 07/13/2022 00:00:00 Anesthesia history Patient's history: negative. Family's history: negative. Health Status Allergies: Nonallergic Reactions (Selected) Severity Not Documented Vicodin- Vomiting., Allergies (1) ActiveReaction VicodinVomiting Current medications: (Selected) Inpatient Medications Ordered Betadine 10% topical solution: 17.5 mL, mL/hr, Topical (INT), PREOP pharm Bicitra: 30 mL, Oral, PREOP pharm Bolus LR 1000 mL: 1,000 mL, IV Bolus, PREOP pharm CeleBREX: 400 mg, 2 cap(s), Oral, PREOP pharm Decadron: 10 mg, 1 mL, IV Push, AsDirected Kefzol: 2 gram(s), 200 mL/hr, IV Piggyback, PREOP pharm LR 1,000 mL: 20 mL/hr, Intravenous, Stop: 07/13/22 23:59:00 EDT Naropin 25 mg + Toradol 15 mg + EPINEPHrine 1 mg/mL injectable solution 0.3 mg + morphine 2.5 mg...: 25 mg, 5 mL, mL/hr, Other, PREOP pharm Naropin 25 mg + Toradol 15 mg + EPINEPHrine 1 mg/mL injectable solution 0.3 mg + morphine 2.5 mg...: 25 mg, 5 mL, mL/hr, Other, PREOP pharm Pepcid IV: 20 mg, 2 mL, IV Push, PREOP pharm tranexamic acid 1 g / 100 mL 0.7% NaCl PMX: 1 gram(s), 100 mL, 300 mL/hr, IV Piggyback, AsDirected tranexamic acid 1 g / 100 mL 0.7% NaCl PMX: 1 gram(s), 100 mL, 300 mL/hr, IV Piggyback, AsDirected vancomycin: 1,250 mg, 25 mL, 200 mL/hr, IV Piggyback, PREOP pharm Prescriptions Prescribed albuterol MDI (90 mcg/inh) CFC free inhalation aerosol: 2 puff(s), Inhalation, q4h, for 30 day(s), use with spacer chamber, PRN: Shortness of breath or wheezing, 1 EA, 5 Refill(s) atorvastatin 20 mg oral tablet: 20 mg, 1 tab(s), Oral, qHS, 90 tab(s), 1 Refill(s) losartan 100 mg oral tablet: 100 mg, 1 tab(s), Oral, qDay, 90 tab(s), 1 Refill(s) Documented Medications Documented Vitamin D3: 100 mcg, 1 tab(s), Oral, Daily, 90 tab(s), 0 Refill(s) calcium (as carbonate) 600 mg oral tablet: See Instructions, 0 Refill(s), Medications (13) Active Scheduled: (12) ceFAZolin 2 gram(s), IV Piggyback, PREOP pharm celecoxib 200 mg capsule 400 mg 2 cap(s), Oral, PREOP pharm citric acid-sodium citrate 334 mg-500 mg/5 mL (30 mL) Leelee UD 30 mL, Oral, PREOP pharm dexamethasone 10 mg/mL (1mL) SDV 10 mg 1 mL, IV Push, AsDirected famotidine 20 mg/2 mL vial 20 mg 2 mL, IV Push, PREOP pharm Lactated Ringers Injection 1000 mL * Bolus * 1,000 mL, IV Bolus, PREOP pharm povidone iodine topical 17.5 mL, Topical (INT), PREOP pharm ropivacaine 25 mg + ketorolac 15 mg + epinephrine 0.3 mg + morphine 2.5 mg 25 mg 5 mL, Other, PREOP pharm ropivacaine 25 mg + ketorolac 15 mg + epinephrine 0.3 mg + morphine 2.5 mg 25 mg 5 mL, Other, PREOP pharm tranexamic acid PMX 1 gram(s) 100 mL, IV Piggyback, AsDirected tranexamic acid PMX 1 gram(s) 100 mL, IV Piggyback, AsDirected vancomycin 1,250 mg 25 mL, IV Piggyback, PREOP pharm Continuous: (1) Lactated Ringers 1,000 mL 1,000 mL, Intravenous, 20 mL/hr PRN: (0) Problem list: Medical Abdominal pain / SNOMED CT 75226068 / Confirmed Abdominal wall pain in suprapubic region / SNOMED CT 410352697 / Confirmed Pollen allergies / SNOMED CT 982796298 / Confirmed Arthritis of left shoulder region / SNOMED CT 2827653306 / Confirmed Abnormal barium swallow / SNOMED CT 081467452 / Confirmed BPPV (benign paroxysmal positional vertigo) / SNOMED CT 825722095 / Confirmed BMI 31.0-31.9,adult / SNOMED CT 109096273 / Confirmed Chronic kidney disease, stage 3a / SNOMED CT 4759524241 / Confirmed Constipation / SNOMED CT 52836176 / Confirmed Mucous cyst of toe / SNOMED CT 7856628749 / Confirmed Dry cough / SNOMED CT 55327634 / Confirmed Dysphagia / SNOMED CT 29094392 / Confirmed Abnormal EKG / SNOMED CT 0013079551 / Confirmed S/P joint replacement / SNOMED CT 851420354 / Confirmed Hearing difficulty / SNOMED CT 564805356 / Confirmed Hiatal hernia / SNOMED CT 563551117 / Confirmed History of shingles / SNOMED CT 7509020474 / Confirmed HLD (hyperlipidemia) / SNOMED CT 71320031 / Confirmed Hypertension goal BP (blood pressure) < 150/90 / SNOMED CT 7632586841 / Confirmed Right low back pain / SNOMED CT 357017474 / Confirmed Microscopic hematuria / SNOMED CT 331639626 / Confirmed Mild aortic valve regurgitation / SNOMED CT 3862866594 / Confirmed Mild mitral valve regurgitation / SNOMED CT 6583718696 / Confirmed Mild tricuspid valve regurgitation / SNOMED CT 2208332736 / Confirmed Myasthenia gravis / SNOMED CT 438278526 / Confirmed Nodule of finger of right hand / SNOMED CT 498515325 / Confirmed Pelvic pain / SNOMED CT 412823900 / Confirmed History of biopsy of bladder / SNOMED CT 4230721861 / Confirmed Prediabetes / SNOMED CT 9790127413 / Confirmed Prolonged QT interval / SNOMED CT 041707645 / Confirmed Left shoulder pain / SNOMED CT 73367307 / Confirmed Sinus bradycardia / SNOMED CT 72499744 / Confirmed SVT (supraventricular tachycardia) / SNOMED CT 76892355 / Confirmed Swelling of left knee joint / SNOMED CT 392011694 / Confirmed Vitamin D deficiency / SNOMED CT 82135854 / Confirmed, Active Problems (37) Abdominal pain Abdominal wall pain in suprapubic region Abnormal barium swallow Abnormal EKG Arthritis of left shoulder region Asthma BMI 31.0-31.9,adult BPPV (benign paroxysmal positional vertigo) Chronic kidney disease, stage 3a Constipation Dry cough Dysphagia Hearing difficulty Hiatal hernia History of biopsy of bladder History of shingles HLD (hyperlipidemia) Hypertension goal BP (blood pressure) < 150/90 Left shoulder pain Microscopic hematuria Mild aortic valve regurgitation Mild mitral valve regurgitation Mild tricuspid valve regurgitation Mucous cyst of toe Myasthenia gravis Nodule of finger of right hand Osteoarthritis Pelvic pain Pollen allergies Prediabetes Prolonged QT interval Right low back pain S/P joint replacement Sinus bradycardia SVT (supraventricular tachycardia) Swelling of left knee joint Vitamin D deficiency Histories Past Medical History: Active Myasthenia gravis (198085284) Resolved Hyperparathyroidism, secondary (888475108): Resolved., HTN, Asthma, myasthenia gravis in the past, chronic kidney disease stage 3 Family History: Malignant tumor of ovary Mother Heart attack Sister Malignant tumor of lung Father Lymphoma Sister Diabetes Son Sister Cardiovascular disease Son Procedure history: Total knee replacement ([id number]) on 09/05/2018 at 73 Years. Comments: 09/29/2018 13:28 EDT - Lisbeth Traore LPN lt Vaginal hysterectomy (736723318). Cholecystectomy (06669126). Tubal ligation (139846579). Colonoscopy (555981273). Social History Social & Psychosocial Habits Alcohol 08/31/2018 Use: Current Comment: occasional - 08/31/2018 08:28 - Agnes Vu LPN 06/24/2019Risk Assessment: No Risk Substance Abuse 08/21/2018 Use: Never 06/24/2019Risk Assessment: No Risk Tobacco 08/21/2018 Tobacco Use: Never (less than 100 in l 06/24/2019Risk Assessment: No Risk Home/Environment 06/28/2022 Domestic Concerns None Lives In 1/2 BATH 1ST FLOOR, Multilevel home Other risks in environment: no current smoke exposure Spouse Name MARIO Marital Status of Patient if Patient Independent Adult: Nutrition/Health 06/28/2022 Type of diet: Regular Caffeine intake amount: 3 cups of coffee daily . Physical Examination No qualifying data available General: Alert and oriented. Airway: Normal temporomandibular joint mobility. Mallampati classification: II (soft palate, fauces, uvula visible). Head: Normocephalic. Dentition Evaluation: Intact. Neck: Supple. Respiratory: Lungs are clear to auscultation. Cardiovascular: Normal rate. Heart Sounds: Normal. Gastrointestinal: Soft. Musculoskeletal Normal range of motion. Integumentary: Intact. Neurologic: Alert. Review / Management Results review: No qualifying data available , Lab results 07/13/2022 7:58 EDT SN - Preop - CTm Pt in SDS Room 07/13/2022 7:52 07/12/2022 17:47 EDT Administrative Alerts Other: review esophagram next visit . Assessment and Plan [place] [employer]hes[employer] (ASA) physical status classification: Class III. Anesthetic Preoperative Plan Premedication: intravenous. Anesthetic technique: General. Induction: intravenously. Maintenance airway: Oral endotracheal tube. Regional: Interscalene Block. Postoperative pain management: Per surgeon. Risks discussed: nausea, vomiting, headache, sore throat, dental injury, hypotension, allergic reaction, serious complications. Informed consent: signed by patient. Digitally Signed by DEEPTHI GRUBBS on 07/13/2022 08:06 AM [facility] 04-26-2022 Note ORIGINAL EXAMINATION: CT OF THE LEFT SHOULDER WITHOUT CONTRAST 04/26/2022 1:37 pm TECHNIQUE: CT of the left shoulder was performed without the administration of intravenous contrast. Multiplanar reformatted images are provided for review. Automated exposure control, iterative reconstruction, and/or weight based adjustment of the mA/kV was utilized to reduce the radiation dose to as low as reasonably achievable. COMPARISON: Radiographs 04/06/2017. HISTORY ORDERING SYSTEM PROVIDED HISTORY: Reason for Exam: Primary osteoarthritis, left shoulder. FINDINGS: No acute fracture or dislocation. Normal osseous mineralization. No visible aggressive osseous lesions. The acromion is type I in morphology with lateral downsloping. Grossly preserved acromioclavicular joint space with tiny marginal osteophytes and capsular distension. Moderate to severe glenohumeral joint space loss is noted with large marginal osteophytes, subchondral cysts as well as subchondral sclerosis. There is osseous remodeling of the humeral head as well as the glenoid. There is posterior and superior decentering of the humeral head in relation to the glenoid. No significant glenohumeral joint effusion. Approximately 9 degrees of superior glenoid retroversion is present approximately 2.8 cm of glenoid bone stock is noted. No central glenoid erosion. Please that this examination poorly evaluates the tendons of the rotator cuff as well as the glenoid labrum due to non arthrographic technique. Mild infraspinatus muscle atrophy. Rotator cuff muscle bulk is otherwise normal. Incompletely evaluated degenerative changes of the cervical and thoracic spine are noted. No visible pathologically enlarged lymph nodes. The included lung parenchyma is predominantly clear. IMPRESSION: 1. No acute osseous abnormalities or aggressive osseous lesions. 2. Advanced glenohumeral osteoarthrosis. Interpreted by: Sachin Alvarez DO Preliminary Report By: Sachin Alvarez DO Electronically signed By Sachin Alvarez DO Dictated Date: 04/26/2022 2:11:54 PM Prelim Date: 04/26/2022 2:21:03 PM Sign Date: 04/26/2022 2:21:03 PM Ordering Provider: MARISEL [facility] 04-26-2022 Note ORIGINAL EXAMINATION: CT OF THE LEFT SHOULDER WITHOUT CONTRAST 04/26/2022 1:37 pm TECHNIQUE: CT of the left shoulder was performed without the administration of intravenous contrast. Multiplanar reformatted images are provided for review. Automated exposure control, iterative reconstruction, and/or weight based adjustment of the mA/kV was utilized to reduce the radiation dose to as low as reasonably achievable. COMPARISON: Radiographs 04/06/2017. HISTORY ORDERING SYSTEM PROVIDED HISTORY: Reason for Exam: Primary osteoarthritis, left shoulder. FINDINGS: No acute fracture or dislocation. Normal osseous mineralization. No visible aggressive osseous lesions. The acromion is type I in morphology with lateral downsloping. Grossly preserved acromioclavicular joint space with tiny marginal osteophytes and capsular distension. Moderate to severe glenohumeral joint space loss is noted with large marginal osteophytes, subchondral cysts as well as subchondral sclerosis. There is osseous remodeling of the humeral head as well as the glenoid. There is posterior and superior decentering of the humeral head in relation to the glenoid. No significant glenohumeral joint effusion. Approximately 9 degrees of superior glenoid retroversion is present approximately 2.8 cm of glenoid bone stock is noted. No central glenoid erosion. Please that this examination poorly evaluates the tendons of the rotator cuff as well as the glenoid labrum due to non arthrographic technique. Mild infraspinatus muscle atrophy. Rotator cuff muscle bulk is otherwise normal. Incompletely evaluated degenerative changes of the cervical and thoracic spine are noted. No visible pathologically enlarged lymph nodes. The included lung parenchyma is predominantly clear. IMPRESSION: 1. No acute osseous abnormalities or aggressive osseous lesions. 2. Advanced glenohumeral osteoarthrosis. Interpreted by: Sachin Alvarez DO Preliminary Report By: Sachin Alvarez DO Electronically signed By Sachin Alvarez DO Dictated Date: 04/26/2022 2:11:54 PM Prelim Date: 04/26/2022 2:21:03 PM Sign Date: 04/26/2022 2:21:03 PM Ordering Provider: MARISEL [facility] Evaluation + Plan note Future Appointments Appointment Date:08/27/2021 02:00:00 PM Scheduled Provider:JOSESITO ADAN DO Location:[facility] Appointment Type:PC OV Future Scheduled QaveeC7S Hemoglobin 02/10/21Complete Blood Count 02/10/21Lipid Profile 02/10/21PTH, Intact 02/10/21Vitamin D Level 02/10/21Complete Metabolic Panel 02/10/21BD Bone Density DEXA Axial Skeleton 03/23/21 [facility] Evaluation + Plan note Future Appointments Appointment Date:06/29/2022 03:00:00 PM Scheduled Provider:JOSESITO ADAN DO Location:[facility] Appointment Type:PC OV Pre Op Future Scheduled TestsBD Bone Density DEXA Axial Skeleton 03/23/21US Renal 03/02/22 [facility] Evaluation + Plan note Future Appointments Appointment Date:06/29/2022 03:00:00 PM Scheduled Provider:JOSESITO ADAN DO Location:[facility] Appointment Type:PC OV Pre Op [facility] Evaluation + Plan note Future Appointments Appointment Date:06/28/2022 07:45:00 AM Scheduled Provider: Location:[facility] Appointment Type:HL Plain Stress Test Appointment Date:06/29/2022 01:00:00 PM Scheduled Provider: Location:[facility] Appointment Type:CV Procedure - AOH Echo Appointment Date:11/02/2022 01:30:00 PM Scheduled Provider:JOSESITO ADAN DO Location:[facility] Appointment Type: Wellness Medicare [facility] Evaluation + Plan note Future Appointments Appointment Date:07/27/2022 01:00:00 PM Scheduled Provider: Location:[facility] Appointment Type:PT Outpatient Evaluation Appointment Date:11/02/2022 01:30:00 PM Scheduled Provider:JOSESITO ADAN DO Location:[facility] Appointment Type:PC Wellness Medicare Future Scheduled TestsXR Esophogram W/Barium Tablet 06/28/22 [facility] Evaluation + Plan note Future Appointments Appointment Date:07/27/2022 01:00:00 PM Scheduled Provider: Location:[facility] Appointment Type:PT Outpatient Evaluation Appointment Date:11/02/2022 01:30:00 PM Scheduled Provider:JOSESITO ADAN DO Location:[facility] Appointment Type:PC Wellness Medicare [facility] Evaluation + Plan note Future Appointments Appointment Date:11/02/2022 01:30:00 PM Scheduled Provider:JOSESITO ADAN DO Location:[facility] Appointment Type:PC Wellness Medicare [facility] Evaluation + Plan note Future Appointments Appointment Date:05/03/2023 01:00:00 PM Scheduled Provider:JOSESITO ADAN DO Location:[facility] Appointment Type:PC OV Future Scheduled TestsBD Bone Density DEXA Axial Skeleton 11/02/22 [facility] course Narrative No data available for this section [facility] Discharge instructions No data available for this section [facility] Progress note No data available for this section [facility] Summary Purpose Family History No Family History Records Found Advance Directives No Advanced Directives Records Found Additional Source Comments Care Team (unrecognized sect ion and content) Care Team Personnel Name: Efrain Barcenas PT Position: P3 Scheduling - Supervisor Travel Information [employer] Advanced Member Role: Other Name: JOSESITO ADAN DO Position: P4 Physician - Primary Care Med Service: Active Provider Member Role: Primary Care Physician Address: Address: [address] [place] [address] Care Team Related Persons Name: MARIO HURLEY Care Team Personnel Name: Efrain Barcenas PT Position: P3 Scheduling - Supervisor Travel Information [employer] Advanced Member Role: Other Name: JOSESITO ADAN DO Position: P4 Physician - Primary Care Member Role: Primary Care Physician Address: Address: [address] [place] [address] Care Team Related Persons Name: MARIO HURLEY Care Team Personnel Name: Narinder Remote Control Assembler Sarita PT Position: P3 Scheduling - Supervisor Travel Information [employer] Advanced Member Role: Other Name: JOSESITO ADAN DO Position: P4 Physician - Primary Care Member Role: Primary Care Physician Address: Address: [address] [place] [address] Care Team Related Persons Name: MARIO HURLEY Patient Care team informatio n (unrecognized section and content) Care Team Personnel Name: Narinder Remote Control Assembler Sarita PT Position: P3 Scheduling - Supervisor Travel Information Center Advanced Member Role: Other Name: JOSESITO ADAN DO Position: P4 Physician - Primary Care Member Role: Primary Care Physician Address: Address: [address] [place] [address] Care Team Related Persons Name: XAVI MARIO Care Team Personnel Name: Narinder Remote Control Assembler Sarita PT Position: P3 Scheduling - Supervisor Travel Information [employer] Advanced Member Role: Other Name: JOSESITO ADAN DO Position: P4 Physician - Primary Care Member Role: Primary Care Physician Address: Address: [address] [place] [address]- Care Team Related Persons Name: XAVIMAIRO Care Team Personnel Name: Narinder Remote Control Assembler Sarita PT Position: P3 Scheduling - Supervisor Travel Information [employer] Advanced Member Role: Other Name: JOSESITO ADAN DO Position: P4 Physician - Primary Care Member Role: Primary Care Physician Address: Address: [address] [place] [address] Care Team Related Persons Name: MAIRO HURLEY Care Team Personnel Name: Narinder Remote Control Assembler Sarita PT Position: P3 Scheduling - Supervisor Travel Information Center Advanced Member Role: Other Name: JOSESITO ADAN DO Position: P4 Physician - Primary Care Member Role: Primary Care Physician Address: Address: [address] [place] [address] Care Team Related Persons Name: XAVI MARIO Care Team Personnel Name: Narinder Remote Control Assembler Sarita PT Position: P3 Scheduling - Supervisor Travel Information [employer] Advanced Member Role: Other Name: JOSESITO ADAN DO Position: P4 Physician - Primary Care Member Role: Primary Care Physician Address: Address: [address] [place] [address] Care Team Related Persons Name: MARIO HURLEY Care Team Personnel Name: Efrain Barcenas Clerk Sarita PT Position: P3 Scheduling - Supervisor Travel Information [employer] Advanced Member Role: Other Name: JOSESITO ADAN DO Position: P4 Physician - Primary Care Member Role: Primary Care Physician Address: Address: [address] [place] [address] Care Team Related Persons Name: MARIO HURLEY Care Team Personnel Name: Efrain Barcenas Clerk Sarita PT Position: P3 Scheduling - Supervisor Travel Information Center Advanced Member Role: Other Name: JOSESITO ADAN DO Position: P4 Physician - Primary Care Member Role: Primary Care Physician Address: Address: [address] [place] [address] Care Team Related Persons Name: MARIO HURLEY INFORMATION SOURCE (unrecogn ized section and content) FOR RECORDS PERTAINING TO PATIENTS WHO ARE OR HAVE BEEN ENROLLED IN A CHEMICAL DEPENDENCY/SUBSTANCEABUSE PROGRAM, SOME INFORMATION MAY BE OMITTED. This clinical summary was aggregated from multiple sources. Caution should be exercised in using it in the provision of clinical care. This summary normalizes information from multiple sources, and as a consequence, information in this document may materially change the coding, format and clinical context of patient data. In addition, data may be omitted in some cases. CLINICAL DECISIONS SHOULD BE BASED ON THE PRIMARY CLINICAL RECORDS. [facility] [employer] [facility]. provides no warranty or guarantee of the accuracy or completeness of information in this document.
--- NOTE | 2023-03-15 07:49 | NM_ITS ---
CLINICAL: 77-year-old female with history of esophageal stenosis. SEMI-SOLID PHASE 99m Tc SULFUR COLLOID GASTRIC EMPTYING STUDY COMPARISON: None available FINDINGS: The patient was administered 1.0 mCi of 99m Tc sulfur colloid mixed with oatmeal and consumed per os. Image acquisitions in the anterior-posterior projections were obtained for 60 minutes. There is prompt visualization of the stomach. There is no gastroesophageal reflux identified. First order kinetics are maintained throughout the duration of the acquisitions. The T ? raw data emptying was calculated to be 51.62 minutes, (Normal: 12-56 minutes). NM/Gastric Emptying Study IMPRESSION: 1. NORMAL 99m Tc sulfur colloid semi-solid phase (oatmeal) gastric emptying imaging examination. A. There is upper limits of normal normal and preserved semi-solid phase gastric emptying compared to normal controls with maintained first order kinetics throughout all components of the examination. (Kristin et al, J Nucl Med Tech 38: 186, 2010). Electronically Signed: Hung Mcdonald DO at 22:55 EST ,
== END | disposition home or self-care (01) ==
PROVIDERS: PCP Student in an Organized Health Care Education/Training Program; Referring Provider Internal Medicine Gastroenterology; Visit Provider Internal Medicine Gastroenterology
DX: R19.00 Intra-abdominal and pelvic swelling, mass and lump, unspecified site (principal)
CPT/HCPCS: 78264; A9541

== ENCOUNTER → 2023-04-04 | Outpatient (CLI) | payer MEDICARE, SELFPAY ==
--- NOTE | 2023-04-04 18:50 | CT_ITS ---
INDICATION: DYSPHAGIA EXAMINATION: CT Chest W/ Contrast Injection TECHNIQUE: Helically acquired images were obtained of the chest following administration of IV contrast. A radiation dose optimization technique was used for this scan. 3D postprocessing images including MIPS were reviewed. IV Contrast dosage and agent: IV 100mL [id number] COMPARISON: None. FINDINGS: Lungs: Unremarkable Mediastinum: The heart is mildly enlarged. No mediastinal, hilar or axillary adenopathy. Mild aortic arch and coronary artery calcifications. No obvious filling defect seen within the visualized pulmonary arteries. Mild asymmetric wall thickening of the midesophagus. Pleura: Unremarkable Bones/Soft tissues: There are diffuse degenerative changes of the spine. Upper abdomen: No visualized abnormalities in the upper abdomen. CT/Chest WITH Contrast IMPRESSION: Mild asymmetric wall thickening of the midesophagus. Consider endoscopy. Electronically Signed: Louis Miramontes MD at 0:11 [facility] ,
[2023-04-04 19:11] LABS: CREATININE FINGERSTICK 1.4 mg/dL (0.55-1.02)
== END | disposition home or self-care (01) ==
LOC: CT 18:37
PROVIDERS: PCP Student in an Organized Health Care Education/Training Program; Referring Provider Internal Medicine Gastroenterology; Visit Provider Internal Medicine Gastroenterology
DX: R13.10 Dysphagia, unspecified (principal)
CPT/HCPCS: 71260; Q9967; A4216